=== PATIENT | male | born 1970 | race Caucasian/White ===

== ENCOUNTER 2022-03-18 01:33 | Emergency (ER) | payer SELFPAY ==
[2022-03-18] MEDS ORDERED: Ketorolac 30 MG/ML SDV IVPUSH ONE (02:12)
[2022-03-18] MEDS ORDERED: Iopamidol 755 Mg/ML 100 ML Bottle IVPUSH ONE (02:46)
[2022-03-18 03:20] LABS: CARBON DIOXIDE,CO2 26.5 mmol/L (21.0-32.0); POTASSIUM,K 3.8 mmol/L (3.5-5.1)
[2022-03-18] MEDS ORDERED: Morphine 4 MG/ML VIAL IVPUSH ONE ×2 (03:32→06:42)
[2022-03-18] MEDS ORDERED: Sodium Chloride 0.9% 1,000 ML IV ONE (03:36)
[2022-03-18] MEDS ORDERED: Glucagon,Human Recombinant 1 MG Vial IM PRN (03:40)
[2022-03-18] MEDS ORDERED: 50% Dextrose in Water 50 ML Syringe IVPUSH PRN (03:40)
[2022-03-18] MEDS ORDERED: Insulin Regular, Human 100 Units/ML 10 ML Vial IVPUSH ONE (03:40)
[2022-03-18] MEDS ORDERED: VANCOmycin 2 GM/400 ML 2 GM in Premix Bag 1 BAG IV ONE (03:45)
[2022-03-18] MEDS ORDERED: Clindamycin Phosphate in D5W 600 MG in Premix Bag 1 BAG IV ONE ×2 (03:51)
[2022-03-18] MEDS ORDERED: Meropenem 500 MG in Sodium Chloride 0.9% 100 ML IV ONE (04:15)
== END 2022-03-18 06:58 ==
LOC: MW.ED 01:33
DX: N49.3 Fournier gangrene (principal)
CPT/HCPCS: 36415; 74177; 80053; 81003; 85025; 86140; 96361; 96365; 96366; 96367; 96368; 96375; 99285; J1815; J1885; J2185; J2270; J3370; J3490; J7030; Q9967

== ENCOUNTER 2023-03-31 16:51 | Inpatient (IN) | payer OTHER ==
[2023-03-31] MEDS ORDERED: Sodium Chloride 0.9% 1,000 ML IV ONE (16:58)
[2023-03-31] MEDS ORDERED: Labetalol 100 MG/20 ML MDV IVPUSH ONE ×2 (17:00→17:46)
[2023-03-31 17:08] LABS: BASOPHILS ABSOLUTE AUTO 0.1 K/uL (0.0-0.1); BASOPHILS PERCENT AUTO 0.7 % (0.0-1.5); EOSINOPHILS ABSOLUTE AUTO 0.2 K/uL (0.0-0.7); EOSINOPHILS PERCENT AUTO 2.6 % (0.0-7.0); HEMOGLOBIN 16.7 g/dL (13.0-17.0); LYMPHOCYTES ABSOLUTE AUTO 3.1 K/uL (0.6-2.4); LYMPHOCYTES PERCENT AUTO 33.6 % (16.0-40.0); MEAN CORPUSCULAR HEMOGLOBIN 29.5 pg (27.0-32.0); MEAN CORPUSCULAR HGB CONC 34.1 g/dL (31.0-37.0); MEAN CORPUSCULAR VOLUME 86.4 fL (80.0-98.0); MONOCYTES ABSOLUTE AUTO 0.7 K/uL (0.0-0.8); MONOCYTES PERCENT AUTO 7.3 % (0.0-15.0); NEUTROPHILS ABSOLUTE AUTO 5.1 K/uL (1.4-5.7); NEUTROPHILS PERCENT AUTO 55.8 % (48.0-80.0); NRBC ABSOLUTE 0 K/uL; PLATELET COUNT,PLT 221 K/uL (150-400); RED BLOOD CELL COUNT 5.67 M/uL (4.50-5.90); WHITE BLOOD CELL COUNT,WBC 9.15 K/uL (4.0-11.0)
[2023-03-31] MEDS ORDERED: Iopamidol 755 MG/ML 500 ML Multipack Bottle IVPUSH STA (17:22)
[2023-03-31 17:26] LABS: INR 0.97 (0.86-1.11); PTT,PARTIAL THROMBOPLSTIN TIME 29.9 SEC (23.9-30.7)
[2023-03-31 17:31] LABS: A/G RATIO 0.9 (0.9-1.6); ALBUMIN 3.9 g/dL (3.4-5.0); BILIRUBIN TOTAL 0.7 mg/dL (0.2-1.0); CALCIUM 9.4 mg/dL (8.5-10.1); CARBON DIOXIDE,CO2 29.1 mmol/L (21.0-32.0); CREATININE 1.9 mg/dL (0.8-1.3); EST CRCL DRUG DOSING (CG) 55.59 mL/min; MAGNESIUM 2.2 mg/dL (1.8-2.4); POTASSIUM,K 4.1 mmol/L (3.5-5.1); PROTEIN TOTAL,TP 8.2 g/dL (6.4-8.2)
[2023-03-31 17:35] LABS: BASE EXCESS VENOUS 1.5 (-2.0-3.0); PH,VENOUS 7.41 (7.31-7.41)
[2023-03-31] MEDS ORDERED: Insulin Regular, Human 100 Units/ML 10 ML Vial IVPUSH ONE ×2 (18:10→19:09)
[2023-03-31 18:57] LABS: APPEARANCE,URINE CLEAR; BILIRUBIN,URINE NEGATIVE (NEGATIVE); COLOR,URINE YELLOW; GLUCOSE,URINE >=1000 mg/dL (NEGATIVE); KETONES,URINE NEGATIVE (NEGATIVE); LEUKOCYTE ESTERASE,URINE NEGATIVE (NEGATIVE); NITRITE,URINE NEGATIVE (NEGATIVE); OCCULT BLOOD,URINE NEGATIVE (NEGATIVE); PH,URINE 6.5 (5.0-8.0); PROTEIN,URINE NEGATIVE (NEGATIVE); UROBILINOGEN,URINE 0.2 EU/dL (<2.0)
[2023-03-31 19:05] LABS: AMPHETAMINES SCREEN, URINE NEGATIVE (CUTOFF=500); BARBITURATE SCREEN,URINE NEGATIVE (CUTOFF=200); BENZODIAZEPINES SCREEN,URINE NEGATIVE (CUTOFF=150); BUPRENORPHINE SCREEN,URINE NEGATIVE (CUTOFF=10); METHADONE SCREEN, URINE NEGATIVE (CUTOFF=200); METHAMPHETAMINES SCREEN, URINE NEGATIVE (CUTOFF=500); OXYCODONE SCREEN,URINE NEGATIVE (CUT0FF=100); PCP SCREEN,URINE NEGATIVE (CUTOFF=25); PROPOXYPHENE SCREEN,URINE NEGATIVE (CUTOFF=300); THC SCREEN,URINE 20 NG/ML NEGATIVE (CUTOFF=50)
[2023-03-31] MEDS ORDERED: Glucagon,Human Recombinant 1 MG Vial IM PRN ×2 (19:09→21:17)
[2023-03-31] MEDS ORDERED: 50% Dextrose in Water 50 ML Syringe IVPUSH PRN ×2 (19:09→21:17)
[2023-04-01 05:58] LABS: BASOPHILS ABSOLUTE AUTO 0.1 K/uL (0.0-0.1); BASOPHILS PERCENT AUTO 0.9 % (0.0-1.5); EOSINOPHILS ABSOLUTE AUTO 0.3 K/uL (0.0-0.7); EOSINOPHILS PERCENT AUTO 2.8 % (0.0-7.0); HEMOGLOBIN 15.5 g/dL (13.0-17.0); LYMPHOCYTES PERCENT AUTO 32.2 % (16.0-40.0); MEAN CORPUSCULAR HEMOGLOBIN 29.4 pg (27.0-32.0); MEAN CORPUSCULAR HGB CONC 34.4 g/dL (31.0-37.0); MEAN CORPUSCULAR VOLUME 85.2 fL (80.0-98.0); MONOCYTES ABSOLUTE AUTO 0.9 K/uL (0.0-0.8); NEUTROPHILS ABSOLUTE AUTO 5.2 K/uL (1.4-5.7); NEUTROPHILS PERCENT AUTO 55.1 % (48.0-80.0); NRBC ABSOLUTE 0 K/uL; PLATELET COUNT,PLT 208 K/uL (150-400); RED BLOOD CELL COUNT 5.28 M/uL (4.50-5.90); WHITE BLOOD CELL COUNT,WBC 9.41 K/uL (4.0-11.0)
[2023-04-01 06:28] LABS: BLOOD UREA NITROGEN,BUN 17 mg/dL (7.0-18.0); CALCIUM 8.2 mg/dL (8.5-10.1); CARBON DIOXIDE,CO2 27.8 mmol/L (21.0-32.0); CHLORIDE,CL 104 mmol/L (98-107); CHOLESTEROL HDL 33 mg/dL (40-60); CHOLESTEROL TOTAL 160 mg/dL (50-200); CREATININE 1.5 mg/dL (0.8-1.3); EST CRCL DRUG DOSING (CG) 70.42 mL/min; GLUCOSE RANDOM 272 mg/dL (74-106); POTASSIUM,K 3.2 mmol/L (3.5-5.1); SODIUM,NA 139 mmol/L (136-148)
[2023-04-01 06:30] LABS: HEMOGLOBIN A1C 12.7 %
[2023-04-01 06:31] LABS: ESTIMATED GFR 56 mL/min (>60); TRIGLYCERIDES 420 mg/dL (0-200)
[2023-04-01] MEDS: Insulin Aspart 100 Units/ML 3 ML Pen SUBCUT SCH ×4 (08:56→17:01)
[2023-04-01] MEDS: Aspirin 81 MG Tab.Chew PO SCH (08:58)
[2023-04-01 09:33] LABS: TSH ULTRASENSITIVE 1.04 uIU/mL (0.36-3.74)
[2023-04-01] MEDS ORDERED: Labetalol 100 MG/20 ML MDV IVPUSH PRN (09:53)
[2023-04-01] MEDS ORDERED: LORazepam 2 MG/ML SDV IVPUSH ONE (11:18)
[2023-04-01] MEDS ORDERED: Gadobenate Dimeglumine 529 MG/ML 20 ML SDV IVPUSH STA (12:26)
[2023-04-01] MEDS: Clopidogrel 75 MG Tab PO SCH (13:19)
[2023-04-01] MEDS ORDERED: Glucagon,Human Recombinant 1 MG Vial IM PRN (14:24)
[2023-04-01] MEDS ORDERED: 50% Dextrose in Water 50 ML Syringe IVPUSH PRN (14:24)
[2023-04-01] MEDS ORDERED: Potassium Chloride 20 MEQ Tab.ER PO ONE (14:30)
[2023-04-01] MEDS: Rosuvastatin 10 MG Tab PO SCH (20:41)
[2023-04-01] MEDS ORDERED: Insulin Glargine,Hum.Rec.Anlog 100 UNIT/ML 3 ML Pen SUBCUT SCH (21:00)
[2023-04-02 05:59] LABS: BASOPHILS ABSOLUTE AUTO 0.1 K/uL (0.0-0.1); BASOPHILS PERCENT AUTO 0.8 % (0.0-1.5); EOSINOPHILS ABSOLUTE AUTO 0.4 K/uL (0.0-0.7); EOSINOPHILS PERCENT AUTO 4.2 % (0.0-7.0); HEMATOCRIT 44.6 % (38.0-50.0); HEMOGLOBIN 14.9 g/dL (13.0-17.0); LYMPHOCYTES ABSOLUTE AUTO 2.7 K/uL (0.6-2.4); LYMPHOCYTES PERCENT AUTO 30.5 % (16.0-40.0); MEAN CORPUSCULAR HEMOGLOBIN 28.7 pg (27.0-32.0); MEAN CORPUSCULAR HGB CONC 33.4 g/dL (31.0-37.0); MEAN CORPUSCULAR VOLUME 85.8 fL (80.0-98.0); MONOCYTES ABSOLUTE AUTO 0.9 K/uL (0.0-0.8); MONOCYTES PERCENT AUTO 9.9 % (0.0-15.0); NEUTROPHILS ABSOLUTE AUTO 4.8 K/uL (1.4-5.7); NEUTROPHILS PERCENT AUTO 54.6 % (48.0-80.0); NRBC ABSOLUTE 0 K/uL; PLATELET COUNT,PLT 222 K/uL (150-400); WHITE BLOOD CELL COUNT,WBC 8.72 K/uL (4.0-11.0)
[2023-04-02 06:21] LABS: CALCIUM 8.1 mg/dL (8.5-10.1); CARBON DIOXIDE,CO2 24.9 mmol/L (21.0-32.0); CREATININE 1.8 mg/dL (0.8-1.3); EST CRCL DRUG DOSING (CG) 58.68 mL/min; POTASSIUM,K 3.8 mmol/L (3.5-5.1)
[2023-04-02] MEDS: Insulin Aspart 100 Units/ML 3 ML Pen SUBCUT SCH ×6 (07:26→17:00)
[2023-04-02] MEDS: Clopidogrel 75 MG Tab PO SCH ×2 (07:58→10:11)
[2023-04-02] MEDS: Aspirin 81 MG Tab.Chew PO SCH ×2 (07:58→10:11)
[2023-04-02] MEDS: amLODIPine 5 MG Tab PO SCH (11:10)
[2023-04-02] MEDS ORDERED: Insulin Glargine,Hum.Rec.Anlog 100 UNIT/ML 3 ML Pen SUBCUT SCH (21:00)
[2023-04-02] MEDS: Rosuvastatin 10 MG Tab PO SCH (21:31)
[2023-04-02] MEDS: Melatonin 3 MG Tab PO PRN (22:38)
[2023-04-03 06:01] LABS: BASOPHILS ABSOLUTE AUTO 0.1 K/uL (0.0-0.1); BASOPHILS PERCENT AUTO 0.6 % (0.0-1.5); EOSINOPHILS ABSOLUTE AUTO 0.3 K/uL (0.0-0.7); EOSINOPHILS PERCENT AUTO 3.3 % (0.0-7.0); HEMATOCRIT 47.4 % (38.0-50.0); HEMOGLOBIN 15.7 g/dL (13.0-17.0); LYMPHOCYTES PERCENT AUTO 29.1 % (16.0-40.0); MEAN CORPUSCULAR HEMOGLOBIN 28.3 pg (27.0-32.0); MEAN CORPUSCULAR HGB CONC 33.1 g/dL (31.0-37.0); MEAN CORPUSCULAR VOLUME 85.4 fL (80.0-98.0); MONOCYTES ABSOLUTE AUTO 0.9 K/uL (0.0-0.8); MONOCYTES PERCENT AUTO 8.7 % (0.0-15.0); NEUTROPHILS PERCENT AUTO 58.3 % (48.0-80.0); NRBC ABSOLUTE 0 K/uL; PLATELET COUNT,PLT 207 K/uL (150-400); RED BLOOD CELL COUNT 5.55 M/uL (4.50-5.90); WHITE BLOOD CELL COUNT,WBC 10.23 K/uL (4.0-11.0)
[2023-04-03 06:16] LABS: CALCIUM 8.4 mg/dL (8.5-10.1); CARBON DIOXIDE,CO2 27.3 mmol/L (21.0-32.0); CREATININE 1.6 mg/dL (0.8-1.3); EST CRCL DRUG DOSING (CG) 66.02 mL/min; POTASSIUM,K 3.8 mmol/L (3.5-5.1)
[2023-04-03] MEDS: Insulin Aspart 100 Units/ML 3 ML Pen SUBCUT SCH ×6 (08:46→17:18)
[2023-04-03] MEDS: amLODIPine 5 MG Tab PO SCH (11:18)
[2023-04-03] MEDS: Aspirin 81 MG Tab.Chew PO SCH (11:19)
[2023-04-03] MEDS: Clopidogrel 75 MG Tab PO SCH (11:19)
[2023-04-03] MEDS: Rosuvastatin 10 MG Tab PO SCH (20:51)
[2023-04-03] MEDS ORDERED: Insulin Glargine,Hum.Rec.Anlog 100 UNIT/ML 3 ML Pen SUBCUT SCH (21:00)
[2023-04-03] MEDS: Melatonin 3 MG Tab PO PRN (23:01)
[2023-04-04 05:46] LABS: BASOPHILS PERCENT AUTO 0.4 % (0.0-1.5); EOSINOPHILS ABSOLUTE AUTO 0.2 K/uL (0.0-0.7); EOSINOPHILS PERCENT AUTO 2.4 % (0.0-7.0); HEMATOCRIT 45.3 % (38.0-50.0); HEMOGLOBIN 15.3 g/dL (13.0-17.0); LYMPHOCYTES ABSOLUTE AUTO 2.5 K/uL (0.6-2.4); MEAN CORPUSCULAR HEMOGLOBIN 28.7 pg (27.0-32.0); MEAN CORPUSCULAR HGB CONC 33.8 g/dL (31.0-37.0); MEAN CORPUSCULAR VOLUME 84.8 fL (80.0-98.0); NEUTROPHILS ABSOLUTE AUTO 6.1 K/uL (1.4-5.7); NEUTROPHILS PERCENT AUTO 62.2 % (48.0-80.0); NRBC ABSOLUTE 0 K/uL; PLATELET COUNT,PLT 202 K/uL (150-400); RED BLOOD CELL COUNT 5.34 M/uL (4.50-5.90); WHITE BLOOD CELL COUNT,WBC 9.84 K/uL (4.0-11.0)
[2023-04-04 06:03] LABS: CALCIUM 7.6 mg/dL (8.5-10.1); CARBON DIOXIDE,CO2 24.7 mmol/L (21.0-32.0); CREATININE 1.5 mg/dL (0.8-1.3); EST CRCL DRUG DOSING (CG) 70.42 mL/min; POTASSIUM,K 3.6 mmol/L (3.5-5.1)
[2023-04-04] MEDS: Insulin Aspart 100 Units/ML 3 ML Pen SUBCUT SCH ×6 (08:31→17:02)
[2023-04-04] MEDS: Aspirin 81 MG Tab.Chew PO SCH (08:33)
[2023-04-04] MEDS: amLODIPine 5 MG Tab PO SCH (08:34)
[2023-04-04] MEDS: Empagliflozin 25 MG Tab PO SCH (08:34)
[2023-04-04] MEDS: Clopidogrel 75 MG Tab PO SCH (08:34)
[2023-04-04] MEDS: Losartan 50 MG Tab PO SCH (14:00)
[2023-04-04] MEDS: Rosuvastatin 10 MG Tab PO SCH (20:56)
[2023-04-04] MEDS: Insulin Glargine,Hum.Rec.Anlog 100 UNIT/ML 3 ML Pen SUBCUT SCH (21:01)
[2023-04-04] MEDS: Melatonin 3 MG Tab PO PRN (21:15)
[2023-04-05 05:42] LABS: BASOPHILS ABSOLUTE AUTO 0.1 K/uL (0.0-0.1); BASOPHILS PERCENT AUTO 0.7 % (0.0-1.5); EOSINOPHILS ABSOLUTE AUTO 0.3 K/uL (0.0-0.7); EOSINOPHILS PERCENT AUTO 3.6 % (0.0-7.0); HEMATOCRIT 45.2 % (38.0-50.0); HEMOGLOBIN 15.2 g/dL (13.0-17.0); LYMPHOCYTES ABSOLUTE AUTO 2.8 K/uL (0.6-2.4); LYMPHOCYTES PERCENT AUTO 32.1 % (16.0-40.0); MEAN CORPUSCULAR HEMOGLOBIN 28.6 pg (27.0-32.0); MEAN CORPUSCULAR HGB CONC 33.6 g/dL (31.0-37.0); MEAN CORPUSCULAR VOLUME 85.1 fL (80.0-98.0); MONOCYTES ABSOLUTE AUTO 0.9 K/uL (0.0-0.8); MONOCYTES PERCENT AUTO 10.4 % (0.0-15.0); NEUTROPHILS ABSOLUTE AUTO 4.6 K/uL (1.4-5.7); NEUTROPHILS PERCENT AUTO 53.2 % (48.0-80.0); NRBC ABSOLUTE 0 K/uL; PLATELET COUNT,PLT 203 K/uL (150-400); RED BLOOD CELL COUNT 5.31 M/uL (4.50-5.90); WHITE BLOOD CELL COUNT,WBC 8.63 K/uL (4.0-11.0)
[2023-04-05 05:55] LABS: CALCIUM 8.4 mg/dL (8.5-10.1); CARBON DIOXIDE,CO2 24.5 mmol/L (21.0-32.0); CREATININE 1.5 mg/dL (0.8-1.3); EST CRCL DRUG DOSING (CG) 70.42 mL/min; POTASSIUM,K 3.9 mmol/L (3.5-5.1)
[2023-04-05] MEDS: Insulin Aspart 100 Units/ML 3 ML Pen SUBCUT SCH ×6 (07:49→16:52)
[2023-04-05] MEDS: Losartan 50 MG Tab PO SCH (09:16)
[2023-04-05] MEDS: Aspirin 81 MG Tab.Chew PO SCH (09:17)
[2023-04-05] MEDS: Clopidogrel 75 MG Tab PO SCH (09:17)
[2023-04-05] MEDS: amLODIPine 5 MG Tab PO SCH (09:17)
[2023-04-05] MEDS: Empagliflozin 25 MG Tab PO SCH (09:32)
[2023-04-05] MEDS ORDERED: Acetaminophen 325 MG Tab PO PRN (19:42)
[2023-04-05] MEDS: Melatonin 3 MG Tab PO PRN (20:34)
[2023-04-05] MEDS: Insulin Glargine,Hum.Rec.Anlog 100 UNIT/ML 3 ML Pen SUBCUT SCH (20:35)
[2023-04-05] MEDS: Rosuvastatin 10 MG Tab PO SCH (20:35)
[2023-04-06 07:15] LABS: BASOPHILS ABSOLUTE AUTO 0.1 K/uL (0.0-0.1); BASOPHILS PERCENT AUTO 0.6 % (0.0-1.5); EOSINOPHILS ABSOLUTE AUTO 0.2 K/uL (0.0-0.7); EOSINOPHILS PERCENT AUTO 2.7 % (0.0-7.0); HEMATOCRIT 44.6 % (38.0-50.0); HEMOGLOBIN 15.1 g/dL (13.0-17.0); LYMPHOCYTES ABSOLUTE AUTO 2.2 K/uL (0.6-2.4); MEAN CORPUSCULAR HEMOGLOBIN 28.8 pg (27.0-32.0); MEAN CORPUSCULAR HGB CONC 33.9 g/dL (31.0-37.0); MONOCYTES ABSOLUTE AUTO 1.1 K/uL (0.0-0.8); MONOCYTES PERCENT AUTO 12.4 % (0.0-15.0); NEUTROPHILS PERCENT AUTO 58.3 % (48.0-80.0); NRBC ABSOLUTE 0 K/uL; PLATELET COUNT,PLT 208 K/uL (150-400); RED BLOOD CELL COUNT 5.25 M/uL (4.50-5.90)
[2023-04-06 07:35] LABS: A/G RATIO 0.8 (0.9-1.6); ALBUMIN 3.2 g/dL (3.4-5.0); BILIRUBIN TOTAL 0.3 mg/dL (0.2-1.0); CALCIUM 8.2 mg/dL (8.5-10.1); CARBON DIOXIDE,CO2 26.6 mmol/L (21.0-32.0); CREATININE 1.7 mg/dL (0.8-1.3); EST CRCL DRUG DOSING (CG) 62.13 mL/min; POTASSIUM,K 3.9 mmol/L (3.5-5.1)
[2023-04-06] MEDS: Insulin Aspart 100 Units/ML 3 ML Pen SUBCUT SCH ×7 (07:54→16:53)
[2023-04-06] MEDS: Losartan 50 MG Tab PO SCH (09:36)
[2023-04-06] MEDS: amLODIPine 5 MG Tab PO SCH (09:37)
[2023-04-06] MEDS: Aspirin 81 MG Tab.Chew PO SCH (09:37)
[2023-04-06] MEDS: Clopidogrel 75 MG Tab PO SCH (09:37)
[2023-04-06] MEDS: Empagliflozin 25 MG Tab PO SCH (09:45)
[2023-04-06] MEDS: Rosuvastatin 10 MG Tab PO SCH (21:08)
[2023-04-06] MEDS: Insulin Glargine,Hum.Rec.Anlog 100 UNIT/ML 3 ML Pen SUBCUT SCH (21:09)
[2023-04-07] MEDS: Melatonin 3 MG Tab PO PRN (00:03)
[2023-04-07 06:13] LABS: BASOPHILS ABSOLUTE AUTO 0.1 K/uL (0.0-0.1); BASOPHILS PERCENT AUTO 0.9 % (0.0-1.5); EOSINOPHILS ABSOLUTE AUTO 0.3 K/uL (0.0-0.7); EOSINOPHILS PERCENT AUTO 3.1 % (0.0-7.0); HEMATOCRIT 43.6 % (38.0-50.0); HEMOGLOBIN 14.4 g/dL (13.0-17.0); LYMPHOCYTES ABSOLUTE AUTO 2.7 K/uL (0.6-2.4); LYMPHOCYTES PERCENT AUTO 26.2 % (16.0-40.0); MEAN CORPUSCULAR HEMOGLOBIN 28.2 pg (27.0-32.0); MEAN CORPUSCULAR VOLUME 85.3 fL (80.0-98.0); MONOCYTES ABSOLUTE AUTO 1.1 K/uL (0.0-0.8); NEUTROPHILS PERCENT AUTO 58.8 % (48.0-80.0); NRBC ABSOLUTE 0 K/uL; PLATELET COUNT,PLT 218 K/uL (150-400); RED BLOOD CELL COUNT 5.11 M/uL (4.50-5.90); WHITE BLOOD CELL COUNT,WBC 10.19 K/uL (4.0-11.0)
[2023-04-07 06:42] LABS: A/G RATIO 0.9 (0.9-1.6); ALBUMIN 3.1 g/dL (3.4-5.0); BILIRUBIN TOTAL 0.4 mg/dL (0.2-1.0); CALCIUM 8.6 mg/dL (8.5-10.1); CREATININE 1.6 mg/dL (0.8-1.3); EST CRCL DRUG DOSING (CG) 66.02 mL/min; POTASSIUM,K 3.8 mmol/L (3.5-5.1); PROTEIN TOTAL,TP 6.7 g/dL (6.4-8.2)
[2023-04-07] MEDS: Insulin Aspart 100 Units/ML 3 ML Pen SUBCUT SCH ×6 (07:48→17:48)
[2023-04-07] MEDS: Clopidogrel 75 MG Tab PO SCH (08:45)
[2023-04-07] MEDS: amLODIPine 5 MG Tab PO SCH (08:45)
[2023-04-07] MEDS: Losartan 50 MG Tab PO SCH (08:46)
[2023-04-07] MEDS: Aspirin 81 MG Tab.Chew PO SCH (08:47)
[2023-04-07] MEDS: Empagliflozin 25 MG Tab PO SCH (10:13)
[2023-04-07] MEDS: Enoxaparin 40 MG/0.4 ML Syringe SUBCUT SCH (10:14)
[2023-04-07] MEDS: Rosuvastatin 10 MG Tab PO SCH (20:22)
[2023-04-07] MEDS ORDERED: Insulin Glargine,Hum.Rec.Anlog 100 UNIT/ML 3 ML Pen SUBCUT SCH (21:00)
[2023-04-08] MEDS: Insulin Aspart 100 Units/ML 3 ML Pen SUBCUT SCH ×4 (08:19→12:05)
[2023-04-08] MEDS: amLODIPine 5 MG Tab PO SCH (09:33)
[2023-04-08] MEDS: Losartan 50 MG Tab PO SCH (09:34)
[2023-04-08] MEDS: Aspirin 81 MG Tab.Chew PO SCH (09:35)
[2023-04-08] MEDS: Clopidogrel 75 MG Tab PO SCH (09:36)
[2023-04-08] MEDS: Enoxaparin 40 MG/0.4 ML Syringe SUBCUT SCH (09:37)
[2023-04-08] MEDS: Empagliflozin 25 MG Tab PO SCH (10:54)
== END 2023-04-08 12:25 | disposition home or self-care (01) | DRG 65 ==
LOC: MW.ED 16:51 → MW.MS 18:34 → OBSVTOIN 04-01 09:38
PROVIDERS: ADMIT Internal Medicine; ATTEND Internal Medicine
DX: I63.9 Cerebral infarction, unspecified (principal); G81.94 Hemiplegia, unspecified affecting left nondominant side; N18.4 Chronic kidney disease, stage 4 (severe); E11.65 Type 2 diabetes mellitus with hyperglycemia; R20.0 Anesthesia of skin; Z20.822 Contact with and (suspected) exposure to COVID-19; E11.40 Type 2 diabetes mellitus with diabetic neuropathy, unspecified; E11.22 Type 2 diabetes mellitus with diabetic chronic kidney disease; I12.9 Hypertensive chronic kidney disease with stage 1 through stage 4 chronic kidney disease, or unspecified chronic kidney disease; E78.00 Pure hypercholesterolemia, unspecified; E11.49 Type 2 diabetes mellitus with other diabetic neurological complication; F41.9 Anxiety disorder, unspecified; H53.9 Unspecified visual disturbance; R29.898 Other symptoms and signs involving the musculoskeletal system; Z88.8 Allergy status to other drugs, medicaments and biological substances; Z79.899 Other long term (current) drug therapy; Z79.4 Long term (current) use of insulin; Z79.82 Long term (current) use of aspirin; Z79.02 Long term (current) use of antithrombotics/antiplatelets; Z91.041 Radiographic dye allergy status
CPT/HCPCS: 36415; 70450; 70450-26; 70496; 70496-26; 70498; 70498-26; 70553; 70553-26; 80048; 80053; 80061; 80305-QW; 80307; 81003; 82009; 82803; 82947; 83036; 83735; 84443; 84484; 85025; 85610; 85730; 92522-GN; 93005; 93010; 93246; 93306; 96361; 96374; 97110-GO; 97110-GP; 97162-GP; 97167-GO; 97530-GP; 97535-GO; 99223; 99232; 99233; 99238; 99284; 99285-25; A9270-GY; G0378; J1650; J1815-GY; J2060; J3490; J7030; Q9967; U0002